=== PATIENT | female | born 1960 | race Caucasian/White ===

== ENCOUNTER 2020-08-22 23:20 | Emergency (ER) | payer OTHER ==
[2020-08-22] MEDS ORDERED: Amoxicillin/Clavulanate K 875-125 MG Tab PO ONE (23:23)
--- NOTE | 2020-08-23 00:25 | EDM.PDOC ---
ED HPI GENERAL MEDICAL PROBLEM - General Stated Complaint: DOG BITE RT POINTER FINGER Time Seen by Provider: 08/22/20 23:23 - History of Present Illness INITIAL COMMENTS - FREE TEXT/NARRATIVE: CHIEF COMPLAINT(S): Dog bite HISTORY OF PRESENT ILLNESS: This is a 59-year-old female without any past medical history who comes to the emergency department with a chief complaint of dog bite. The patient states that she was playing with her dog prior to arrival when it got caught on the dog's tooth causing a laceration to her left index finger. She states that she came in because the wound was gaping. She states that she did not have any significant bleeding. She states that the dog's immunizations are up-to-date. She states that she does have full range of motion and is nontender and she took Motrin prior to arrival. She states that her tetanus is up-to-date. She denies any other injury or pain. REVIEW OF SYSTEMS: Constitutional: Denies fever, chills. Skin: Positive for laceration to right index finger MSK: Denies any finger pain. Neurological: Denies numbness, tingling, weakness PAST MEDICAL HISTORY: As per history of present illness and as reviewed below otherwise noncontributory. SURGICAL HISTORY: As per history of present illness and as reviewed below otherwise noncontributory. SOCIAL HISTORY: As per history of present illness and as reviewed below otherwise noncontributory. FAMILY HISTORY: As per history of present illness and as reviewed below otherwise noncontributory. EXAMINATION OF ORGAN SYSTEMS/BODY AREAS: Constitutional: Blood pressure is 139/90, heart rate 65, respiratory rate 18 with an oxygen saturation 97% on room air. Temperature 35.9 temporally General: Overall well-appearing woman who is in no acute distress Psychiatric: Appropriate mood and affect. Eyes: No scleral icterus or conjunctival erythema Cardiovascular: Regular, rate, and rhythm. No gallops, murmurs, or rubs. Bilateral upper extremity pulses symmetric and intact. No peripheral edema. Respiratory: Lungs clear to auscultation bilaterally. No wheezes, rales, or rhonchi. Musculoskeletal: The patient has full range of motion of the right index finger without any deformity. Skin: There is a 2.5 linear laceration to the anterior portion of the index finger without any bone or tendon exposed Neurological: Alert, GCS 15 distal sensation is intact MEDICAL DECISION MAKING AND COURSE IN THE ED WITH INTERPRETATION/REVIEW OF DIAGNOSTIC STUDIES: This is a 59-year-old woman without any significant past medical history who comes to the emergency department with right index finger laceration who is right-hand dominant after a dog bite. At this time the patient's tetanus is up-to-date. We did irrigate the wound to clean it. The patient does have a dog bite however the wound is gaping therefore we will place 2 stitches loosely. We did provide the patient with Augmentin. Laceration Repair Note Repair of the 2.5 cm left anterior index wound was done by myself. Wound was irrigated well with saline. Digital nerve block was performed by myself with 1% lidocaine. No foreign bodies were noted. The wound was repaired with 2 4-0 directed nylon sutures. Wound edges were still slightly open given the dog bite. Bacitracin ointment and a sterile dressing were applied. After close approximation with stitches I did discuss with patient that there is a significant risk of infection with dog bites and given that it has her dominant hand I encouraged her to take antibiotics twice a day until antibiotics are gone. Encouraged her to follow-up with orthopedics within 1 week for evaluation. She was given strict return precautions. 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 She was amenable to discharge at this time and had no further question DISPOSITION: The patient was discharged home in stable condition. The patient will follow up with orthopedics within 1 week CONDITION: Fair PROCEDURES: Digital nerve block, left index finger laceration repair FINAL IMPRESSION(S)/DIAGNOSES: 1. Acute left index laceration status post loose suture repair secondary to dog bite 2. Acute dog bite Elder Cochran M.D. rignt index finger Pain Score (Numeric/FACES): 4 - Related Data Allergies Allergy/AdvReac Type Severity Reaction Status Date / Time No Known Allergies Allergy Verified 08/22/20 23:41 Home Meds: Home Meds Amoxicillin/Potassium Clav [Amox Tr-K Clv 875-125 mg Tab] 1 each PO BID #20 tablet 08/23/20 [Rx] Past Medical History HEENT History: Reports: None Cardiovascular History: Reports: None Respiratory History: Reports: None Gastrointestinal History: Reports: None Genitourinary History: Reports: None BEHAVIORAL HEALTH SPECIALIST History: Reports: None Musculoskeletal History: Reports: None Neurological History: Reports: None Psychiatric History: Reports: None Endocrine/Metabolic History: Reports: None Insulin Pump Model and Electric Bath Attendant: None Hematologic History: Reports: None Immunologic History: Reports: None Oncologic (Cancer) History: Reports: None Dermatologic History: Reports: None - Infectious Disease History Infectious Disease History: Reports: None - Past Surgical History Head Surgeries/Procedures: Reports: None Female Surgical History: Reports: Other (See Below) Other Female Surgeries/Procedures: lumpectomy Social & Family History - Caffeine Use Caffeine Use: Reports: Coffee, Soda - Recreational Drug Use Recreational Drug Use: No ED ROS GENERAL - Review of Systems Review Of Systems: See Below ED EXAM, ANIMAL BITE - Physical Exam Exam: See Below Course - Vital Signs Last Recorded V/S: Last Vital Signs Temp 35.9 C L 08/22/20 23:30 Pulse 65 08/22/20 23:30 Resp 18 08/22/20 23:30 BP 139/90 08/22/20 23:30 Pulse Ox 97 08/22/20 23:30 Departure - Departure Time of Disposition: 00:25 Disposition: Home, Self-Care 01 Condition: Fair Clinical Impression: Dog bite Qualifiers: Encounter type: initial encounter Qualified Code(s): W54.0XXA - Bitten by dog, initial encounter Finger laceration Qualifiers: Encounter type: initial encounter Finger: index finger Damage to nail status: unspecified Foreign body presence: unspecified Laterality: right Qualified Code(s): S61.210A - Laceration without foreign body of right index finger without damage to nail, initial encounter - Discharge Information *PRESCRIPTION DRUG MONITORING PROGRAM REVIEWED*: No *COPY OF PRESCRIPTION DRUG MONITORING REPORT IN PATIENT MITA: No Prescriptions: Amoxicillin/Potassium Clav [Amox Tr-K Clv 875-125 mg Tab] 1 each PO BID #20 tablet Instructions: Animal Bite, Adult, [id number], Laceration Care, Adult, Pain Medicine Instructions, [id number] Referrals: PCP,Not In Area [Primary Care Provider] - Forms: ED Department Discharge Additional Instructions: You were evaluated today on an emergent basis. At this time we did clean out the wound, put 2 stitches and started you on amoxicillin clavulanic acid. This is the #1 treatment for dog bites. Given that this is to your dominant hand I do recommend you completely finish the course of antibiotics. I do need you to follow-up with orthopedics within 5 to 7 days for continued evaluation. Dog bites do have an increased infection risk especially in your hand and fingers. Please return for any new worsening symptoms such as redness, pus drainage, swelling. Please use Tylenol and Motrin for pain and swelling. Please use: Tylenol 500-1000mg every 6 hours (DO NOT TAKE MORE THAN 4000mg in 1 day) Ibuprofen 400mg every 6 hours (Take with food as it can cause ulcers, GI upset) Example schedule: 8:00 AM (Tylenol 500-1000mg) 11:00 AM (Ibuprofen 400mg) 2:00 PM (Tylenol 500-1000mg) 5:00 PM (Ibuprofen 400mg) Ice the area 20 minutes 4 times per day [facility] [address], [address] [place] [address] The patient is informed of any results of their evaluation and diagnostic workup and all questions are answered. They are given discharge instructions and return precautions. The patient is stable for discharge. The patient states they understand and agree with the plan and that they will return if their symptoms get worse or if they have any new concerns. The following information is given to patients seen in the emergency department who are being discharged to home. This information is to outline your options for follow-up care. We provide all patients seen in our emergency department with a follow-up referral. The need for follow-up, as well as the timing and circumstances, are variable depending upon the specifics of your emergency department visit. If you don't have a primary care physician on staff, we will provide you with a referral. We always advise you to contact your personal physician following an emergency department visit to inform them of the circumstance of the visit and for follow-up with them and/or the need for any referrals to a consulting specialist. The emergency department will also refer you to a specialist when appropriate. This referral assures that you have the opportunity for follow-up care with a specialist. All of these measure are taken in an effort to provide you with optimal care, which includes your follow-up. Under all circumstances we always encourage you to contact your private physician who remains a resource for coordinating your care. When calling for follow-up care, please make the office aware that this follow-up is from your recent emergency room visit. If for any reason you are refused follow-up, please contact the [facility] Emergency Department at and asked to speak to the emergency department charge nurse. Sepsis Event Note (ED) - Evaluation Sepsis Screening Result: No Definite Risk - Focused Exam Vital Signs: Vital Signs Temp Pulse Resp BP Pulse Ox 08/22/20 23:30 35.9 C L 65 18 139/90 97
== END 2020-08-23 00:30 | disposition home or self-care (01) ==
LOC: MW.ED 23:20
DX: S61.251A Open bite of left index finger without damage to nail, initial encounter (principal); W54.0XXA Bitten by dog, initial encounter
CPT/HCPCS: 12001; 99283; A9270